=== PATIENT | male | born 1955 | race Caucasian/White ===

== ENCOUNTER 2018-11-29 18:08 | Emergency (ER) | payer MEDICAID ==
[~2018-11-29] VITALS: Ht 182.9 cm; Wt 88.7 kg
[2018-11-29 18:12] VITALS: BP 145/83
== END 2018-11-29 19:51 | disposition home or self-care (01) ==
LOC: ED 19:15
DX: G89.11 Acute pain due to trauma (principal); M25.512 Pain in left shoulder; W01.0XXA Fall on same level from slipping, tripping and stumbling without subsequent striking against object, initial encounter; Y93.89 Activity, other specified; Y92.009 Unspecified place in unspecified non-institutional (private) residence as the place of occurrence of the external cause; Y99.8 Other external cause status
CPT/HCPCS: 99283

== ENCOUNTER 2018-12-20 08:49 | Inpatient (IN) | payer MEDICAID ==
[~2018-12-20] VITALS: Ht 182.9 cm; Wt 79.0 kg
--- NOTE | 2018-12-20 09:09 | NUR ---
PT MOE TYRONE FROM [facility] WHERE HE FELL X 2 AND VOMITTED X 2 TODAY. PT WITH HX: TBI. PT PLACED ON BP, CARDIAC AND CONT. PULSE OXIMETER. PT A&OX4. TEMP 101.5. PT PLACED ON OXYGEN AT 3 LITERS NC. ASSESSMENT COMPLETED. EKG DONE AND PRESENTED TO
[2018-12-20] MEDS ORDERED: CEFTRIAXONE PMX 1GM/50ML 50 ML IVPB ONE (09:30)
[2018-12-20] MEDS ORDERED: SODIUM CHLORIDE 0.9% 1,000ML IVBOLUS ONE ×2 (09:30→11:00)
[2018-12-20] MEDS ORDERED: ACETAMINOPHEN 500 MG TABLET PO ONE (09:30)
[2018-12-20 09:56] LABS: MEAN CORPUSCULAR HEMOGLOBIN 33.1 pg (27.5-34.5); MEAN CORPUSCULAR HGB CONC 33.3 g/dL (33.2-36.2); MEAN CORPUSCULAR VOLUME 99.3 fL (81-97); MEAN PLATELET VOLUME 8.3 fL (7.4-10.4); PLATELET COUNT 131 x10^3/uL (130-400); RED BLOOD COUNT 5.61 x10^6/uL (4.38-5.82); RED CELL DISTRIBUTION WIDTH 14.6 % (9.4-14.8)
[2018-12-20] MEDS ORDERED: CEFTRIAXONE PMX 1GM/50ML 50 ML ONE (10:04)
[2018-12-20] MEDS ORDERED: ACETAMINOPHEN 500 MG TABLET ONE (10:06)
[2018-12-20 10:07] LABS: ALBUMIN 3.4 g/dL (3.4-5.0); ANION GAP 9 mmol/L (5-15); CALCIUM 8.8 mg/dL (8.5-10.1); CHLORIDE 106 mmol/L (98-107)
[2018-12-20 10:12] LABS: ALANINE AMINOTRANSFERASE 30 U/L (12-78); ALKALINE PHOSPHATASE 78 U/L (45-117); BILIRUBIN,TOTAL 1.3 mg/dL (0.2-1.0); CREATININE 1.33 mg/dL (0.7-1.3); TOTAL PROTEIN 6.1 g/dL (6.4-8.2)
[2018-12-20 10:33] LABS: MD YES
[2018-12-20 10:36] LABS: BAND#(MANUAL) 3.21 x10^3/uL; BANDS%(MANUAL) 27 % (0-7); LYMPH#(MANUAL) 0.12 x10^3/uL (1-3.4); LYMPHS% (MANUAL) 1 % (22-44); METAMYELOCYTES# (MANUAL) 0.12 x10^3/uL (0-0); METAMYELOCYTES% (MANUAL) 1 % (0-1); MONOS#(MANUAL) 0.48 x10^3/uL (0.3-2.7); MONOS% (MANUAL) 4 % (2-9); SEG#(MANUAL) 7.97 x10^3/uL (1.8-6.8); SEGS% (MANUAL) 67 % (42-75)
[2018-12-20 10:37] LABS: <PLATELET ESTIMATE> ADEQUATE; <PLT MORPHOLOGY> NORMAL PLT MORPH; <RBC MORPHOLOGY> NORMAL
--- NOTE | 2018-12-20 10:47 | NUR ---
BLOOD CULTURES DRAWN X 2. ANTIBIOTICS HUNG PER MD ORDER
[2018-12-20] MEDS ORDERED: AMLO10TA8 PO (11:34)
[2018-12-20] MEDS ORDERED: LISI-170 PO (11:34)
[2018-12-20] MEDS ORDERED: TAMS-11 PO (11:34)
[2018-12-20] MEDS ORDERED: METF500T17 PO (11:35)
[2018-12-20] MEDS ORDERED: ASPI-496 PO (11:35)
[2018-12-20] MEDS ORDERED: DIVA125C2 PO ×2 (11:36→17:54)
[2018-12-20] MEDS ORDERED: OLAN10TA9 PO (11:37)
[2018-12-20] MEDS ORDERED: BENZ0.5T35 PO ×2 (11:39→18:39)
--- NOTE | 2018-12-20 11:39 | NUR ---
pt unable to urinate at this time. pt aware of urine sample needed.
--- NOTE | 2018-12-20 11:48 | NUR ---
PT REFUSING CATH FOR URINE SAMPLE
--- NOTE | 2018-12-20 11:54 | NUR ---
PT VOMITTED BROWNISH BRUGUNDY 500MLS EMESIS.
[2018-12-20] MEDS ORDERED: ONDANSETRON 2MG/ML, 2ML IVPush ONE (12:00)
[2018-12-20] MEDS ORDERED: ONDANSETRON 2MG/ML, 2ML ONE (12:13)
--- NOTE | 2018-12-20 12:18 | NUR ---
lab in for type and screen. zofran given.
--- NOTE | 2018-12-20 12:40 | NUR ---
DINERO INSERTED: PER DR. HARPREET HOWARD INSERT DINERO
--- NOTE | 2018-12-20 13:00 | NUR ---
CAREGIVER GRACE [phone] FROM [facility]
--- NOTE | 2018-12-20 13:10 | NUR ---
700 MLS IN DINERO BAG.
[2018-12-20 13:16] LABS: MICROSCOPIC INDICATED
[2018-12-20 13:25] LABS: CULTURE INDICATED? NO
[2018-12-20] MEDS ORDERED: ACETAMINOPHEN 325 MG TABLET PO PRN (13:30)
[2018-12-20] MEDS ORDERED: ONDANSETRON 2MG/ML, 2ML IVPush PRN (13:30)
[2018-12-20] MEDS ORDERED: ONDANSETRON ODT 4 MG PO PRN (13:30)
--- NOTE | 2018-12-20 13:52 | NUR ---
REPORT GIVEN TO ANA TAYLOR. LAB INTO DRAW ABG.
--- NOTE | 2018-12-20 13:52 | NUR ---
LESLEY MONSON [phone]
[2018-12-20 14:02] LABS: % IRON SATURATION 12 % (20-55); IRON LEVEL 44 mcg/dL (65-175); TOTAL IRON BINDING CAPACITY 363 mcg/dL (250-450)
--- NOTE | 2018-12-20 14:24 | NUR ---
PT TRANSPORTED TO FLOOR. PT LEFT WITH ALL PERSONAL BELONGINGS.
[2018-12-20 14:30] VITALS: BP 127/70
[2018-12-20 15:02] VITALS: BP 127/70
[2018-12-20] MEDS: LACTOBACILLUS CHEW TABLET PO SCH ×2 (16:35→21:02)
[2018-12-20] MEDS: NICOTINE 7 MG/24 HR PATCH.TD24 TD SCH (16:35)
[2018-12-20] MEDS: SODIUM CHLORIDE 0.9% 1,000 ML IV SCH (16:35)
[2018-12-20] MEDS ORDERED: ATOR40TA78 PO (17:58)
[2018-12-20] MEDS ORDERED: NAPR-856 PO (17:58)
[2018-12-20] MEDS ORDERED: CALCIUM CARBONATE 500 MG TAB.CHEW PO PRN (21:00)
[2018-12-20] MEDS: DIVALPROEX 125 MG CAP.SPRINK PO SCH (21:02)
[2018-12-20] MEDS: OLANZAPINE 10 MG TABLET PO SCH (21:02)
[2018-12-20 21:50] VITALS: BP 125/78
[2018-12-21 03:35] VITALS: BP 123/71
[2018-12-21] MEDS: SODIUM CHLORIDE 0.9% 1,000 ML IV SCH ×2 (05:01→22:45)
[2018-12-21 05:22] LABS: BASOPHILS # (AUTO) 0.01 x10^3/uL (0-0.1); BASOPHILS % (AUTO) 0 % (0-1); EOSINOPHILS # (AUTO) 0.07 x10^3/uL (0-0.4); EOSINOPHILS % (AUTO) 1 % (1-7); LYMPHOCYTES # (AUTO) 0.55 x10^3/uL (1-3.4); LYMPHOCYTES % (AUTO) 8 % (22-44); MD NO; MEAN CORPUSCULAR HEMOGLOBIN 33.4 pg (27.5-34.5); MEAN CORPUSCULAR HGB CONC 33.8 g/dL (33.2-36.2); MEAN CORPUSCULAR VOLUME 98.9 fL (81-97); MEAN PLATELET VOLUME 8.3 fL (7.4-10.4); MONOCYTES # (AUTO) 0.65 x10^3/uL (0.2-0.8); MONOCYTES % (AUTO) 10 % (2-9); NEUTROPHILS % (AUTO) 81 % (42-75); PLATELET COUNT 116 x10^3/uL (130-400); RED BLOOD COUNT 4.77 x10^6/uL (4.38-5.82); RED CELL DISTRIBUTION WIDTH 14.9 % (9.4-14.8)
[2018-12-21 05:29] LABS: ANION GAP 2 mmol/L (5-15); CALCIUM 7.9 mg/dL (8.5-10.1); CHLORIDE 110 mmol/L (98-107); CREATININE 0.92 mg/dL (0.7-1.3)
[2018-12-21 07:13] VITALS: BP 135/86
[2018-12-21] MEDS ORDERED: PANTOPRAZOLE 40 MG IV IVPush SCH (07:30)
[2018-12-21] MEDS: TAMSULOSIN 0.4 MG CAP.ER.24H PO SCH (09:43)
[2018-12-21] MEDS: DIVALPROEX 125 MG CAP.SPRINK PO SCH ×2 (09:43→23:25)
[2018-12-21] MEDS: LACTOBACILLUS CHEW TABLET PO SCH ×3 (09:44→23:25)
[2018-12-21] MEDS: ASPIRIN 81 MG TABLET EC PO SCH (09:44)
[2018-12-21] MEDS: AMLODIPINE 10 MG TAB PO SCH (09:44)
[2018-12-21] MEDS ORDERED: FERROUS SULFATE 325 MG TABLET PO SCH (10:30)
[2018-12-21] MEDS: NICOTINE 7 MG/24 HR PATCH.TD24 TD SCH (11:45)
[2018-12-21 18:30] VITALS: BP 158/80
[2018-12-21] MEDS: OLANZAPINE 10 MG TABLET PO SCH (23:25)
[2018-12-22 01:35] VITALS: BP 166/88
[2018-12-22 05:31] LABS: BASOPHILS # (AUTO) 0.02 x10^3/uL (0-0.1); BASOPHILS % (AUTO) 0 % (0-1); EOSINOPHILS # (AUTO) 0.09 x10^3/uL (0-0.4); EOSINOPHILS % (AUTO) 1 % (1-7); LYMPHOCYTES # (AUTO) 0.97 x10^3/uL (1-3.4); LYMPHOCYTES % (AUTO) 13 % (22-44); MD NO; MEAN CORPUSCULAR HEMOGLOBIN 33.1 pg (27.5-34.5); MEAN CORPUSCULAR HGB CONC 33.4 g/dL (33.2-36.2); MEAN CORPUSCULAR VOLUME 99.3 fL (81-97); MEAN PLATELET VOLUME 8.3 fL (7.4-10.4); MONOCYTES % (AUTO) 8 % (2-9); NEUTROPHILS # (AUTO) 5.68 x10^3/uL (1.8-6.8); NEUTROPHILS % (AUTO) 77 % (42-75); PLATELET COUNT 111 x10^3/uL (130-400); RED BLOOD COUNT 4.94 x10^6/uL (4.38-5.82); RED CELL DISTRIBUTION WIDTH 14.7 % (9.4-14.8)
[2018-12-22 05:37] LABS: ANION GAP 5 mmol/L (5-15); CHLORIDE 109 mmol/L (98-107)
[2018-12-22 05:38] LABS: CALCIUM 7.7 mg/dL (8.5-10.1); CREATININE 0.76 mg/dL (0.7-1.3)
[2018-12-22] MEDS ORDERED: OMEPRAZOLE 20 MG CAPSULE.DR PO SCH (06:00)
[2018-12-22 06:52] VITALS: BP 146/85
[2018-12-22] MEDS ORDERED: LISINOPRIL 5 MG TABLET PO SCH (09:00)
[2018-12-22] MEDS: LACTOBACILLUS CHEW TABLET PO SCH (09:22)
[2018-12-22] MEDS: AMLODIPINE 10 MG TAB PO SCH (09:22)
[2018-12-22] MEDS: TAMSULOSIN 0.4 MG CAP.ER.24H PO SCH (09:22)
[2018-12-22] MEDS: ASPIRIN 81 MG TABLET EC PO SCH (09:22)
[2018-12-22] MEDS: DIVALPROEX 125 MG CAP.SPRINK PO SCH (09:22)
[2018-12-22] MEDS ORDERED: OMEP-110 PO (10:28)
[2018-12-22] MEDS ORDERED: ACID1TAB7 PO (10:28)
[2018-12-22] MEDS ORDERED: FERR-51 PO (10:28)
[2018-12-22] MEDS ORDERED: LISI5TAB7 PO (10:28)
[2018-12-22] MEDS ORDERED: CALC200T24 PO (10:28)
[2018-12-22 14:26] VITALS: BP 131/69
== END 2018-12-22 14:48 | disposition home or self-care (01) | DRG 872 ==
LOC: ED 11:20 → EDIP 11:51 → 4NOR 14:21
PROVIDERS: ADMIT Hospitalist; ATTEND Hospitalist
DX: A41.9 Sepsis, unspecified organism (principal); N17.9 Acute kidney failure, unspecified; K92.0 Hematemesis; I50.9 Heart failure, unspecified; I11.0 Hypertensive heart disease with heart failure; F17.200 Nicotine dependence, unspecified, uncomplicated; M81.0 Age-related osteoporosis without current pathological fracture; D75.1 Secondary polycythemia; E61.1 Iron deficiency; D69.6 Thrombocytopenia, unspecified; Z87.820 Personal history of traumatic brain injury
CPT/HCPCS: 36415; 36600; 71045; 80048; 80053; 81001; 82803; 83540; 83550; 83605; 83735; 85025; 86850; 86900; 87040; 93005; G0378; J0696; J2405; C9113; J7030

== ENCOUNTER 2019-01-02 13:15 | Emergency (ER) | payer MEDICAID ==
[~2019-01-02] VITALS: Ht 182.9 cm; Wt 87.0 kg
[~2019-01-02 13:15] MED LIST: ACID1TAB7 PO; AMLO10TA8 PO; ASPI-496 PO; ATOR40TA78 PO; BENZ0.5T35 PO; CALC200T24 PO; DIVA125C2 PO; FERR-51 PO; LISI-170 PO; LISI5TAB7 PO; METF500T17 PO; NAPR-856 PO; OLAN10TA9 PO; OMEP-110 PO; TAMS-11 PO
--- NOTE | 2019-01-02 14:30 | NUR ---
RESING WITH EYES CLOSED
--- NOTE | 2019-01-02 15:11 | NUR ---
AMBULATED WITHOUT ASSISTANCE TO BATHROOM
--- NOTE | 2019-01-02 15:15 | NUR ---
PT GIVEN DISCHARGE INSTRUCTIONS. PT STATES HE WANTS TO BE ADMITTED AND SPEND THE NIGHT HERE. EXPLAINED CT NORMAL AND NO REASON FOR ADMISSION. PT WANTING DINNER AND TO STAY.
--- NOTE | 2019-01-02 15:17 | NUR ---
PT AMBULATED TO BATHROOM WITH RN. WHILE IN BATHROOM PT STATES HE FELL, ON ALL FOURS. PT STATES HIS KNEES HURT. PT PLACED IN WHEELCHAIR AND BACK TO ROOM Addendum: 01/02/19 at 1648 by UMANG LATE ENTRY FOR 151
[2019-01-02] MEDS ORDERED: IBUPROFEN 600 MG TABLET PO ONE (16:00)
[2019-01-02] MEDS ORDERED: IBUPROFEN 600 MG TABLET ONE (16:07)
[2019-01-02] MEDS ORDERED: IBUPROFEN 200 MG TABLET ONE (16:10)
--- NOTE | 2019-01-02 16:22 | NUR ---
AFTER MD BENITA MEDICATED FOR BILATERAL KNEE PAIN. NO ABRASIONS NOTED AND FULL RANGE OF MOTION. PT TO DISCHARGE WINDOW BY WHEELCHAIR
[2019-01-02 16:37] VITALS: BP 143/74
== END 2019-01-02 15:13 ==
LOC: ED 14:05
DX: S00.93XA Contusion of unspecified part of head, initial encounter (principal); E11.9 Type 2 diabetes mellitus without complications; I10 Essential (primary) hypertension; W01.0XXA Fall on same level from slipping, tripping and stumbling without subsequent striking against object, initial encounter; Y93.89 Activity, other specified; Y92.009 Unspecified place in unspecified non-institutional (private) residence as the place of occurrence of the external cause; Y99.8 Other external cause status
CPT/HCPCS: 70450; 99284

== ENCOUNTER 2020-05-31 20:53 | Emergency (ER) | payer MEDICAID ==
[~2020-05-31] VITALS: Ht 180.3 cm; Wt 91.0 kg
--- NOTE | 2020-05-31 23:13 | NUR ---
[facility] [employer]: PT. TO ROOM FROM LOBBY AT THIS TIME.
--- NOTE | 2020-05-31 23:26 | NUR ---
PT TO ED WITH C/O OF LEFT KNEE PAIN. TENDER WITH PALPATION, FULL ROM, NEURO INTACT. PT DENIES ANY OTHER C/O AT THIS TIME. MONITORING APPLIED, CALL LIGHT WITHIN REACH, ALL SAFETY MEASURES IN PLACE.
[2020-05-31 23:31] VITALS: BP 124/65
[2020-05-31] MEDS ORDERED: IBUPROFEN 800 MG TABLET ONE (23:44)
[2020-06-01] MEDS ORDERED: IBUPROFEN 800 MG TABLET PO ONE
== END 2020-06-01 00:06 | disposition home or self-care (01) ==
LOC: ED 22:00
DX: S80.02XA Contusion of left knee, initial encounter (principal); I10 Essential (primary) hypertension; E11.9 Type 2 diabetes mellitus without complications; Z87.891 Personal history of nicotine dependence; W01.0XXA Fall on same level from slipping, tripping and stumbling without subsequent striking against object, initial encounter; Y93.89 Activity, other specified; Y92.009 Unspecified place in unspecified non-institutional (private) residence as the place of occurrence of the external cause; Y99.8 Other external cause status
CPT/HCPCS: 99283

== ENCOUNTER 2021-06-12 17:53 | Inpatient (IN) | payer MEDICAID ==
[~2021-06-12] VITALS: Ht 175.3 cm; Wt 79.0 kg
[~2021-06-12 17:53] MED LIST changes: +AMLO-211 PO; -AMLO10TA8 PO; +OLAN10TA69 PO; -OLAN10TA9 PO
--- NOTE | 2021-06-12 18:52 | NUR ---
Report from Tru TAYLOR
[2021-06-12] MEDS ORDERED: ONDANSETRON 2MG/ML, 2ML IVPush ONE (20:00)
[2021-06-12] MEDS ORDERED: MORPHINE SULFATE 4 MG/ML, 1ML IVPush PRN (20:00)
--- NOTE | 2021-06-12 20:58 | NUR ---
Report to Tari TAYLOR
[2021-06-12] MEDS ORDERED: ONDANSETRON 2MG/ML, 2ML ONE (20:59)
[2021-06-12] MEDS ORDERED: MORPHINE SULFATE 4 MG/ML, 1ML ONE (20:59)
[2021-06-12] MEDS ORDERED: CALCIUM CARBONATE 500 MG TAB.CHEW PO PRN (21:00)
[2021-06-12] MEDS ORDERED: LABETALOL 5MG/ML, 20ML IVPush PRN (21:00)
[2021-06-12] MEDS ORDERED: morphine SULFATE 10 MG/ML, 1ML IVPush PRN (21:00)
[2021-06-12] MEDS ORDERED: ONDANSETRON 2MG/ML, 2ML IVPush PRN (21:00)
[2021-06-12] MEDS ORDERED: LISI40TA9 PO (21:34)
[2021-06-12] MEDS ORDERED: OMEP20CA20 PO (21:34)
[2021-06-12] MEDS ORDERED: TAMS-11 PO (21:34)
[2021-06-12] MEDS ORDERED: AMLO-210 PO (21:34)
[2021-06-12] MEDS ORDERED: DIVA125C3 PO (21:34)
[2021-06-12] MEDS ORDERED: VITA1TAB3 PO (21:34)
[2021-06-12] MEDS ORDERED: ASPI-1027 PO (21:34)
[2021-06-12] MEDS ORDERED: DIVALPROEX 125 MG CAP.SPRINK PO ONE (21:45)
[2021-06-12] MEDS: FERROUS SULFATE 325 MG TABLET PO SCH (22:34)
[2021-06-12] MEDS: BENZTROPINE 1 MG TABLET PO SCH (22:34)
[2021-06-12] MEDS: metFORMIN 500 MG TABLET PO SCH (22:34)
[2021-06-12] MEDS: ATORVASTATIN 40 MG TABLET PO SCH (22:34)
[2021-06-12] MEDS: OLANZAPINE 10 MG TABLET PO SCH (22:37)
[2021-06-12 22:47] VITALS: BP 138/82
[2021-06-12 23:24] LABS: BASOPHILS % (AUTO) 0 % (0-1); EOSINOPHILS % (AUTO) 0 % (1-7); LYMPHOCYTES % (AUTO) 6 % (22-44); MEAN CORPUSCULAR HEMOGLOBIN 33.8 pg (27.5-34.5); MEAN CORPUSCULAR HGB CONC 33.9 g/dL (33.2-36.2); MEAN PLATELET VOLUME 9.2 fL (7.4-10.4); MONOCYTES % (AUTO) 8 % (2-9); NEUTROPHILS % (AUTO) 86 % (42-75); PLATELET COUNT 132 x10^3/uL (130-400); RED BLOOD COUNT 5.19 x10^6/uL (4.38-5.82); RED CELL DISTRIBUTION WIDTH 14.7 % (9.4-14.8)
[2021-06-12 23:40] LABS: ANION GAP 7 mmol/L (5-15); CALCIUM 8.1 mg/dL (8.5-10.1); CHLORIDE 105 mmol/L (98-107); CREATININE 0.75 mg/dL (0.7-1.3)
[2021-06-13 01:20] VITALS: BP 119/80
[2021-06-13] MEDS: OMEPRAZOLE 20 MG CAPSULE.DR PO SCH (01:30)
[2021-06-13] MEDS ORDERED: CHLORHEXIDINE 15 ML UDC ONE (05:37)
[2021-06-13] MEDS ORDERED: CHLORHEXIDINE 15 ML UDC PO ONE (06:00)
[2021-06-13] MEDS ORDERED: FENTANYL PF 100 MCG/2ML ONE (06:27)
[2021-06-13] MEDS ORDERED: EPINEPHRINE 1 MG/ML, 1ML ONE (06:38)
[2021-06-13] MEDS ORDERED: BUPIVACAINE/PF 0.5% ONE (06:38)
[2021-06-13 06:55] LABS: ALBUMIN 3.5 g/dL (3.4-5.0); CALCIUM 8.8 mg/dL (8.5-10.1)
[2021-06-13 06:58] LABS: ALANINE AMINOTRANSFERASE 28 U/L (12-78); ALKALINE PHOSPHATASE 86 U/L (45-117); BILIRUBIN,TOTAL 1.4 mg/dL (0.2-1.0); TOTAL PROTEIN 6.5 g/dL (6.4-8.2)
[2021-06-13 07:04] LABS: ANION GAP 8 mmol/L (5-15); CHLORIDE 104 mmol/L (98-107)
[2021-06-13] MEDS ORDERED: TRANEXAMIC ACID 100 MG/ML, 10ML ONE (07:12)
[2021-06-13] MEDS ORDERED: HYDROmorphone 1 MG/ML, 1ML INJ ONE (07:23)
[2021-06-13] MEDS ORDERED: MEPERIDINE/PF 25MG/0.5ML IVPush PRN (07:30)
[2021-06-13] MEDS ORDERED: FENTANYL PF 100 MCG/2ML IV PRN (07:30)
[2021-06-13] MEDS ORDERED: MIDAZOLAM 1 MG/ML, 2ML IV PRN (07:30)
[2021-06-13] MEDS ORDERED: OXYcodone 5 MG/5 ML ORAL.SOL UDC PO PRN (07:30)
[2021-06-13] MEDS ORDERED: ALBUTEROL SULFATE 2.5 MG/3 ML NPPB PRN (07:30)
[2021-06-13] MEDS ORDERED: ACETAMINOPHEN 325 MG TABLET PO PRN (07:30)
[2021-06-13] MEDS ORDERED: hydrALAzine 20 MG/ML, 1ML IV PRN (07:30)
[2021-06-13] MEDS ORDERED: HYDROmorphone 1 MG/ML, 1ML INJ IVPush PRN (07:30)
[2021-06-13] MEDS ORDERED: PROMETHAZINE 25 MG/ML, 1ML IVPush PRN (07:30)
[2021-06-13] MEDS ORDERED: DEXAMETHASONE 4 MG/ML, 1ML ONE (07:59)
[2021-06-13] MEDS ORDERED: CEFAZOLIN 1,000 MG ONE (07:59)
[2021-06-13] MEDS ORDERED: ONDANSETRON 2MG/ML, 2ML ONE (07:59)
[2021-06-13] MEDS ORDERED: PROPOFOL 10 MG/ML, 20ML ONE (07:59)
[2021-06-13] MEDS ORDERED: SUCCINYLCHOLINE 20 MG/ML, 10ML ONE (08:36)
[2021-06-13] MEDS: BENZTROPINE 1 MG TABLET PO SCH ×2 (10:56→20:26)
[2021-06-13] MEDS: AMLODIPINE 10 MG TAB PO SCH (10:56)
[2021-06-13] MEDS: TAMSULOSIN 0.4 MG CAP.ER.24H PO SCH (10:56)
[2021-06-13] MEDS: DIVALPROEX 125 MG CAP.SPRINK PO SCH (10:57)
[2021-06-13] MEDS: LISINOPRIL 5 MG TABLET PO SCH (10:57)
[2021-06-13] MEDS: SENNA/DOCUSATE TABLET PO SCH (10:57)
[2021-06-13] MEDS: metFORMIN 500 MG TABLET PO SCH ×2 (10:57→17:40)
[2021-06-13 12:15] VITALS: BP 94/60
[2021-06-13] MEDS: CEFAZOLIN PMX 1GM/50ML 50 ML IVPB SCH ×2 (18:15→23:48)
[2021-06-13 20:15] VITALS: BP 110/68
[2021-06-13] MEDS: OLANZAPINE 10 MG TABLET PO SCH (20:26)
[2021-06-13] MEDS: ATORVASTATIN 40 MG TABLET PO SCH (20:26)
[2021-06-13] MEDS: ACETAMINOPHEN 325 MG TABLET PO PRN (20:26)
[2021-06-14 00:15] VITALS: BP 118/74
[2021-06-14 04:27] VITALS: BP 103/68
[2021-06-14] MEDS: OMEPRAZOLE 20 MG CAPSULE.DR PO SCH (06:06)
[2021-06-14] MEDS: ENOXAPARIN 40 MG/0.4 ML SQ SCH (06:08)
[2021-06-14 08:45] VITALS: BP 104/66
[2021-06-14] MEDS: DIVALPROEX 125 MG CAP.SPRINK PO SCH (08:50)
[2021-06-14] MEDS: SENNA/DOCUSATE TABLET PO SCH (08:50)
[2021-06-14] MEDS: TAMSULOSIN 0.4 MG CAP.ER.24H PO SCH (08:50)
[2021-06-14] MEDS: metFORMIN 500 MG TABLET PO SCH ×2 (08:50→18:19)
[2021-06-14] MEDS: AMLODIPINE 10 MG TAB PO SCH (08:51)
[2021-06-14] MEDS: BENZTROPINE 1 MG TABLET PO SCH ×2 (08:51→22:04)
[2021-06-14] MEDS: LISINOPRIL 5 MG TABLET PO SCH (08:51)
[2021-06-14 13:04] VITALS: BP 107/67
[2021-06-14] MEDS ORDERED: OXYcodone IR 5MG TABLET PO PRN (17:30)
[2021-06-14 20:32] VITALS: BP 103/67
[2021-06-14] MEDS: ATORVASTATIN 40 MG TABLET PO SCH (22:04)
[2021-06-14] MEDS: OLANZAPINE 10 MG TABLET PO SCH (22:04)
[2021-06-14] MEDS: OXYcodone IR 5MG TABLET PO PRN (22:06)
[2021-06-14] MEDS: FERROUS SULFATE 325 MG TABLET PO SCH (22:09)
[2021-06-15 01:54] VITALS: BP 110/73
[2021-06-15] MEDS: ENOXAPARIN 40 MG/0.4 ML SQ SCH (05:28)
[2021-06-15] MEDS: OMEPRAZOLE 20 MG CAPSULE.DR PO SCH (05:28)
[2021-06-15 05:42] LABS: BASOPHILS % (AUTO) 0 % (0-1); EOSINOPHILS % (AUTO) 1 % (1-7); LYMPHOCYTES % (AUTO) 8 % (22-44); MEAN CORPUSCULAR HEMOGLOBIN 33.3 pg (27.5-34.5); MEAN CORPUSCULAR HGB CONC 33.2 g/dL (33.2-36.2); MEAN PLATELET VOLUME 8.9 fL (7.4-10.4); MONOCYTES % (AUTO) 11 % (2-9); NEUTROPHILS % (AUTO) 79 % (42-75); PLATELET COUNT 116 x10^3/uL (130-400); RED BLOOD COUNT 4.07 x10^6/uL (4.38-5.82); RED CELL DISTRIBUTION WIDTH 15.4 % (9.4-14.8)
[2021-06-15 05:53] LABS: CHLORIDE 104 mmol/L (98-107)
[2021-06-15 05:58] LABS: ANION GAP 5 mmol/L (5-15); CALCIUM 8.4 mg/dL (8.5-10.1); CREATININE 0.93 mg/dL (0.7-1.3)
[2021-06-15 08:37] VITALS: BP 116/62
[2021-06-15] MEDS: BENZTROPINE 1 MG TABLET PO SCH ×2 (10:09→20:50)
[2021-06-15] MEDS: metFORMIN 500 MG TABLET PO SCH ×2 (10:10→17:57)
[2021-06-15] MEDS: TAMSULOSIN 0.4 MG CAP.ER.24H PO SCH (10:10)
[2021-06-15] MEDS: AMLODIPINE 10 MG TAB PO SCH (10:10)
[2021-06-15] MEDS: DIVALPROEX 125 MG CAP.SPRINK PO SCH (10:10)
[2021-06-15] MEDS: LISINOPRIL 5 MG TABLET PO SCH (10:10)
[2021-06-15] MEDS: SENNA/DOCUSATE TABLET PO SCH (10:10)
[2021-06-15] MEDS: OXYcodone IR 5MG TABLET PO PRN (10:23)
[2021-06-15] MEDS: POLYETHYLENE GLYCOL 17 GM PACKET PO SCH (11:12)
[2021-06-15 16:56] VITALS: BP 102/61
[2021-06-15 19:23] VITALS: BP 99/61
[2021-06-15] MEDS: OLANZAPINE 10 MG TABLET PO SCH (20:49)
[2021-06-15] MEDS: ATORVASTATIN 40 MG TABLET PO SCH (20:49)
[2021-06-16 02:30] VITALS: BP 112/71
[2021-06-16 06:04] LABS: BASOPHILS % (AUTO) 0 % (0-1); EOSINOPHILS % (AUTO) 2 % (1-7); LYMPHOCYTES % (AUTO) 9 % (22-44); MEAN CORPUSCULAR HEMOGLOBIN 33.6 pg (27.5-34.5); MEAN CORPUSCULAR HGB CONC 33.8 g/dL (33.2-36.2); MONOCYTES % (AUTO) 10 % (2-9); NEUTROPHILS % (AUTO) 79 % (42-75); PLATELET COUNT 124 x10^3/uL (130-400); RED BLOOD COUNT 3.93 x10^6/uL (4.38-5.82); RED CELL DISTRIBUTION WIDTH 14.9 % (9.4-14.8)
[2021-06-16 06:12] LABS: CALCIUM 8.5 mg/dL (8.5-10.1); CREATININE 0.98 mg/dL (0.7-1.3)
[2021-06-16] MEDS: ENOXAPARIN 40 MG/0.4 ML SQ SCH (06:17)
[2021-06-16] MEDS: OMEPRAZOLE 20 MG CAPSULE.DR PO SCH (06:17)
[2021-06-16 07:27] LABS: ANION GAP 7 mmol/L (5-15); CHLORIDE 103 mmol/L (98-107)
[2021-06-16 08:27] VITALS: BP 113/69
[2021-06-16] MEDS: DIVALPROEX 125 MG CAP.SPRINK PO SCH (08:35)
[2021-06-16] MEDS: TAMSULOSIN 0.4 MG CAP.ER.24H PO SCH (08:35)
[2021-06-16] MEDS: AMLODIPINE 10 MG TAB PO SCH (08:36)
[2021-06-16] MEDS: LISINOPRIL 5 MG TABLET PO SCH (08:36)
[2021-06-16] MEDS: BENZTROPINE 1 MG TABLET PO SCH ×2 (08:36→21:05)
[2021-06-16] MEDS: SENNA/DOCUSATE TABLET PO SCH (08:36)
[2021-06-16] MEDS: POLYETHYLENE GLYCOL 17 GM PACKET PO SCH (08:36)
[2021-06-16] MEDS: metFORMIN 500 MG TABLET PO SCH ×2 (08:36→17:09)
[2021-06-16] MEDS: OXYcodone IR 5MG TABLET PO PRN (12:46)
[2021-06-16 14:37] VITALS: BP 116/60
[2021-06-16 20:42] VITALS: BP 117/77
[2021-06-16] MEDS: ATORVASTATIN 40 MG TABLET PO SCH (21:05)
[2021-06-16] MEDS: OLANZAPINE 10 MG TABLET PO SCH (21:05)
[2021-06-16] MEDS: FERROUS SULFATE 325 MG TABLET PO SCH (21:05)
[2021-06-16] MEDS: BISACODYL 10 MG SUPP PR PRN (21:05)
[2021-06-17 00:15] VITALS: BP 125/78
[2021-06-17] MEDS: OMEPRAZOLE 20 MG CAPSULE.DR PO SCH (06:35)
[2021-06-17] MEDS: ENOXAPARIN 40 MG/0.4 ML SQ SCH (06:36)
[2021-06-17 07:28] VITALS: BP 105/63
[2021-06-17] MEDS: metFORMIN 500 MG TABLET PO SCH ×2 (08:03→17:13)
[2021-06-17] MEDS: BENZTROPINE 1 MG TABLET PO SCH ×2 (09:28→19:53)
[2021-06-17] MEDS: DIVALPROEX 125 MG CAP.SPRINK PO SCH (09:29)
[2021-06-17] MEDS: TAMSULOSIN 0.4 MG CAP.ER.24H PO SCH (09:29)
[2021-06-17] MEDS: POLYETHYLENE GLYCOL 17 GM PACKET PO SCH (09:29)
[2021-06-17] MEDS: AMLODIPINE 10 MG TAB PO SCH (09:29)
[2021-06-17] MEDS: LISINOPRIL 5 MG TABLET PO SCH (09:29)
[2021-06-17] MEDS: SENNA/DOCUSATE TABLET PO SCH (09:29)
[2021-06-17 13:36] VITALS: BP 135/84
[2021-06-17 13:44] VITALS: BP 98/57
[2021-06-17 19:38] VITALS: BP 105/64
[2021-06-17] MEDS: ATORVASTATIN 40 MG TABLET PO SCH (19:53)
[2021-06-17] MEDS: OLANZAPINE 10 MG TABLET PO SCH (19:53)
[2021-06-18 00:59] VITALS: BP 121/73
[2021-06-18] MEDS: OMEPRAZOLE 20 MG CAPSULE.DR PO SCH (06:19)
[2021-06-18] MEDS: ENOXAPARIN 40 MG/0.4 ML SQ SCH (06:19)
[2021-06-18 07:37] VITALS: BP 113/69
[2021-06-18] MEDS: metFORMIN 500 MG TABLET PO SCH ×2 (07:55→17:26)
[2021-06-18] MEDS: BENZTROPINE 1 MG TABLET PO SCH ×2 (08:55→20:19)
[2021-06-18] MEDS: POLYETHYLENE GLYCOL 17 GM PACKET PO SCH (08:55)
[2021-06-18] MEDS: TAMSULOSIN 0.4 MG CAP.ER.24H PO SCH (08:55)
[2021-06-18] MEDS: DIVALPROEX 125 MG CAP.SPRINK PO SCH (08:55)
[2021-06-18] MEDS: SENNA/DOCUSATE TABLET PO SCH (08:56)
[2021-06-18] MEDS: LISINOPRIL 5 MG TABLET PO SCH (08:56)
[2021-06-18] MEDS: AMLODIPINE 10 MG TAB PO SCH (08:56)
[2021-06-18 14:13] VITALS: BP 126/71
[2021-06-18 19:00] VITALS: BP 103/62
[2021-06-18] MEDS: ATORVASTATIN 40 MG TABLET PO SCH (20:18)
[2021-06-18] MEDS: FERROUS SULFATE 325 MG TABLET PO SCH (20:19)
[2021-06-18] MEDS: OLANZAPINE 10 MG TABLET PO SCH (20:19)
[2021-06-19 01:00] VITALS: BP 124/74
[2021-06-19] MEDS: OMEPRAZOLE 20 MG CAPSULE.DR PO SCH (06:02)
[2021-06-19] MEDS: ENOXAPARIN 40 MG/0.4 ML SQ SCH (06:02)
[2021-06-19 06:53] VITALS: BP 132/65
[2021-06-19] MEDS: metFORMIN 500 MG TABLET PO SCH ×2 (08:06→17:07)
[2021-06-19] MEDS: TAMSULOSIN 0.4 MG CAP.ER.24H PO SCH (09:08)
[2021-06-19] MEDS: DIVALPROEX 125 MG CAP.SPRINK PO SCH (09:08)
[2021-06-19] MEDS: LISINOPRIL 5 MG TABLET PO SCH (09:08)
[2021-06-19] MEDS: BENZTROPINE 1 MG TABLET PO SCH ×2 (09:08→21:25)
[2021-06-19] MEDS: AMLODIPINE 10 MG TAB PO SCH (09:08)
[2021-06-19] MEDS: POLYETHYLENE GLYCOL 17 GM PACKET PO SCH (09:08)
[2021-06-19] MEDS: SENNA/DOCUSATE TABLET PO SCH (09:09)
[2021-06-19 13:35] VITALS: BP 134/76
[2021-06-19 18:27] VITALS: BP 140/69
[2021-06-19] MEDS: ATORVASTATIN 40 MG TABLET PO SCH (21:24)
[2021-06-19] MEDS: OLANZAPINE 10 MG TABLET PO SCH (21:24)
[2021-06-20 00:28] VITALS: BP 130/67
[2021-06-20] MEDS: OMEPRAZOLE 20 MG CAPSULE.DR PO SCH (06:00)
[2021-06-20 07:29] VITALS: BP 132/78
[2021-06-20] MEDS: TAMSULOSIN 0.4 MG CAP.ER.24H PO SCH (07:58)
[2021-06-20] MEDS: LISINOPRIL 5 MG TABLET PO SCH (07:58)
[2021-06-20] MEDS: DIVALPROEX 125 MG CAP.SPRINK PO SCH (07:58)
[2021-06-20] MEDS: SENNA/DOCUSATE TABLET PO SCH (07:59)
[2021-06-20] MEDS: ENOXAPARIN 40 MG/0.4 ML SQ SCH (07:59)
[2021-06-20] MEDS: metFORMIN 500 MG TABLET PO SCH ×2 (07:59→16:20)
[2021-06-20] MEDS: AMLODIPINE 10 MG TAB PO SCH (07:59)
[2021-06-20] MEDS: BENZTROPINE 1 MG TABLET PO SCH ×2 (07:59→19:56)
[2021-06-20] MEDS: POLYETHYLENE GLYCOL 17 GM PACKET PO SCH (07:59)
[2021-06-20] MEDS: BISACODYL 10 MG SUPP PR PRN (10:17)
[2021-06-20 13:48] VITALS: BP 105/67
[2021-06-20 19:18] VITALS: BP 139/78
[2021-06-20] MEDS: ATORVASTATIN 40 MG TABLET PO SCH (19:59)
[2021-06-20] MEDS: FERROUS SULFATE 325 MG TABLET PO SCH (19:59)
[2021-06-20] MEDS: OLANZAPINE 10 MG TABLET PO SCH (19:59)
[2021-06-21 02:35] VITALS: BP 134/76
[2021-06-21] MEDS: OMEPRAZOLE 20 MG CAPSULE.DR PO SCH (05:58)
[2021-06-21 07:15] VITALS: BP 136/76
[2021-06-21] MEDS: BENZTROPINE 1 MG TABLET PO SCH ×2 (07:51→22:20)
[2021-06-21] MEDS: AMLODIPINE 10 MG TAB PO SCH (07:51)
[2021-06-21] MEDS: TAMSULOSIN 0.4 MG CAP.ER.24H PO SCH (07:51)
[2021-06-21] MEDS: LISINOPRIL 5 MG TABLET PO SCH (07:52)
[2021-06-21] MEDS: metFORMIN 500 MG TABLET PO SCH ×2 (07:53→16:24)
[2021-06-21] MEDS: SENNA/DOCUSATE TABLET PO SCH (07:53)
[2021-06-21] MEDS: DIVALPROEX 125 MG CAP.SPRINK PO SCH (07:53)
[2021-06-21] MEDS: POLYETHYLENE GLYCOL 17 GM PACKET PO SCH (07:53)
[2021-06-21] MEDS: ENOXAPARIN 40 MG/0.4 ML SQ SCH (07:54)
[2021-06-21 13:40] VITALS: BP 117/64
[2021-06-21 19:20] VITALS: BP 113/68
[2021-06-21] MEDS: ATORVASTATIN 40 MG TABLET PO SCH (22:19)
[2021-06-21] MEDS: OLANZAPINE 10 MG TABLET PO SCH (22:20)
[2021-06-22 01:02] VITALS: BP 117/71
[2021-06-22] MEDS: OMEPRAZOLE 20 MG CAPSULE.DR PO SCH (05:54)
[2021-06-22 06:21] LABS: CREATININE 0.71 mg/dL (0.7-1.3)
[2021-06-22 06:58] VITALS: BP 134/74
[2021-06-22] MEDS: BENZTROPINE 1 MG TABLET PO SCH ×2 (09:01→20:02)
[2021-06-22] MEDS: TAMSULOSIN 0.4 MG CAP.ER.24H PO SCH (09:01)
[2021-06-22] MEDS: metFORMIN 500 MG TABLET PO SCH ×2 (09:01→16:11)
[2021-06-22] MEDS: AMLODIPINE 10 MG TAB PO SCH (09:01)
[2021-06-22] MEDS: SENNA/DOCUSATE TABLET PO SCH (09:01)
[2021-06-22] MEDS: DIVALPROEX 125 MG CAP.SPRINK PO SCH (09:01)
[2021-06-22] MEDS: LISINOPRIL 5 MG TABLET PO SCH (09:02)
[2021-06-22] MEDS: ENOXAPARIN 40 MG/0.4 ML SQ SCH (09:02)
[2021-06-22] MEDS: POLYETHYLENE GLYCOL 17 GM PACKET PO SCH (09:02)
[2021-06-22 13:25] VITALS: BP 112/69
[2021-06-22] MEDS: BISACODYL 10 MG SUPP PR PRN (16:12)
[2021-06-22] MEDS: ATORVASTATIN 40 MG TABLET PO SCH (20:02)
[2021-06-22] MEDS: OLANZAPINE 10 MG TABLET PO SCH (20:02)
[2021-06-22] MEDS: FERROUS SULFATE 325 MG TABLET PO SCH (20:02)
[2021-06-22 20:45] VITALS: BP 121/70
[2021-06-23 02:46] VITALS: BP 135/75
[2021-06-23] MEDS: OMEPRAZOLE 20 MG CAPSULE.DR PO SCH (06:13)
[2021-06-23 07:24] VITALS: BP 134/75
[2021-06-23] MEDS: metFORMIN 500 MG TABLET PO SCH ×2 (08:23→16:20)
[2021-06-23] MEDS: SENNA/DOCUSATE TABLET PO SCH (08:23)
[2021-06-23] MEDS: POLYETHYLENE GLYCOL 17 GM PACKET PO SCH (08:23)
[2021-06-23] MEDS: DIVALPROEX 125 MG CAP.SPRINK PO SCH (08:24)
[2021-06-23] MEDS: LISINOPRIL 5 MG TABLET PO SCH (08:24)
[2021-06-23] MEDS: TAMSULOSIN 0.4 MG CAP.ER.24H PO SCH (08:24)
[2021-06-23] MEDS: BENZTROPINE 1 MG TABLET PO SCH ×2 (08:24→20:53)
[2021-06-23] MEDS: AMLODIPINE 10 MG TAB PO SCH (08:25)
[2021-06-23] MEDS: ENOXAPARIN 40 MG/0.4 ML SQ SCH (08:25)
[2021-06-23 13:06] VITALS: BP 115/90
[2021-06-23 20:02] VITALS: BP 115/72
[2021-06-23] MEDS: ATORVASTATIN 40 MG TABLET PO SCH (20:53)
[2021-06-23] MEDS: OLANZAPINE 10 MG TABLET PO SCH (20:53)
[2021-06-24 00:17] VITALS: BP 148/77
[2021-06-24] MEDS: OMEPRAZOLE 20 MG CAPSULE.DR PO SCH (06:07)
[2021-06-24 07:29] VITALS: BP 131/74
[2021-06-24] MEDS: DIVALPROEX 125 MG CAP.SPRINK PO SCH (10:27)
[2021-06-24] MEDS: LISINOPRIL 5 MG TABLET PO SCH (10:28)
[2021-06-24] MEDS: SENNA/DOCUSATE TABLET PO SCH (10:28)
[2021-06-24] MEDS: metFORMIN 500 MG TABLET PO SCH ×2 (10:28→18:18)
[2021-06-24] MEDS: AMLODIPINE 10 MG TAB PO SCH (10:28)
[2021-06-24] MEDS: TAMSULOSIN 0.4 MG CAP.ER.24H PO SCH (10:28)
[2021-06-24] MEDS: BENZTROPINE 1 MG TABLET PO SCH ×2 (10:29→21:11)
[2021-06-24] MEDS: POLYETHYLENE GLYCOL 17 GM PACKET PO SCH (10:31)
[2021-06-24 13:44] VITALS: BP 132/78
[2021-06-24] MEDS: ENOXAPARIN 40 MG/0.4 ML SQ SCH (14:59)
[2021-06-24 19:03] VITALS: BP 120/74
[2021-06-24] MEDS: ATORVASTATIN 40 MG TABLET PO SCH (21:10)
[2021-06-24] MEDS: FERROUS SULFATE 325 MG TABLET PO SCH (21:11)
[2021-06-24] MEDS: OLANZAPINE 10 MG TABLET PO SCH (21:11)
[2021-06-24] MEDS: ACETAMINOPHEN 325 MG TABLET PO PRN (23:36)
[2021-06-25 01:04] VITALS: BP 125/71
[2021-06-25] MEDS: OMEPRAZOLE 20 MG CAPSULE.DR PO SCH (05:41)
[2021-06-25 06:13] LABS: CREATININE 0.67 mg/dL (0.7-1.3)
[2021-06-25 07:21] VITALS: BP 131/79
[2021-06-25] MEDS: AMLODIPINE 10 MG TAB PO SCH (10:44)
[2021-06-25] MEDS: DIVALPROEX 125 MG CAP.SPRINK PO SCH (10:45)
[2021-06-25] MEDS: SENNA/DOCUSATE TABLET PO SCH (10:45)
[2021-06-25] MEDS: BENZTROPINE 1 MG TABLET PO SCH ×2 (10:45→20:02)
[2021-06-25] MEDS: LISINOPRIL 5 MG TABLET PO SCH (10:46)
[2021-06-25] MEDS: metFORMIN 500 MG TABLET PO SCH ×2 (10:46→16:00)
[2021-06-25] MEDS: TAMSULOSIN 0.4 MG CAP.ER.24H PO SCH (10:46)
[2021-06-25] MEDS: ENOXAPARIN 40 MG/0.4 ML SQ SCH (10:47)
[2021-06-25] MEDS: POLYETHYLENE GLYCOL 17 GM PACKET PO SCH (10:54)
[2021-06-25 13:29] VITALS: BP 120/65
[2021-06-25 18:31] VITALS: BP 119/66
[2021-06-25] MEDS: ATORVASTATIN 40 MG TABLET PO SCH (20:02)
[2021-06-25] MEDS: OLANZAPINE 10 MG TABLET PO SCH (20:03)
[2021-06-26 01:28] VITALS: BP 130/74
[2021-06-26] MEDS: OMEPRAZOLE 20 MG CAPSULE.DR PO SCH (05:00)
[2021-06-26 06:59] VITALS: BP 134/73
[2021-06-26] MEDS: POLYETHYLENE GLYCOL 17 GM PACKET PO SCH (09:00)
[2021-06-26] MEDS: ENOXAPARIN 40 MG/0.4 ML SQ SCH (10:18)
[2021-06-26] MEDS: metFORMIN 500 MG TABLET PO SCH ×2 (10:18→17:33)
[2021-06-26] MEDS: SENNA/DOCUSATE TABLET PO SCH (10:18)
[2021-06-26] MEDS: AMLODIPINE 10 MG TAB PO SCH (10:18)
[2021-06-26] MEDS: LISINOPRIL 5 MG TABLET PO SCH (10:18)
[2021-06-26] MEDS: BENZTROPINE 1 MG TABLET PO SCH ×2 (10:18→20:00)
[2021-06-26] MEDS: TAMSULOSIN 0.4 MG CAP.ER.24H PO SCH (10:18)
[2021-06-26] MEDS: DIVALPROEX 125 MG CAP.SPRINK PO SCH (10:18)
[2021-06-26 15:30] VITALS: BP 122/69
[2021-06-26 19:55] VITALS: BP 130/69
[2021-06-26] MEDS: FERROUS SULFATE 325 MG TABLET PO SCH (20:00)
[2021-06-26] MEDS: ATORVASTATIN 40 MG TABLET PO SCH (20:00)
[2021-06-26] MEDS: OLANZAPINE 10 MG TABLET PO SCH (20:00)
[2021-06-27 00:04] VITALS: BP 128/81
[2021-06-27] MEDS: OMEPRAZOLE 20 MG CAPSULE.DR PO SCH (06:21)
[2021-06-27 07:15] VITALS: BP 132/79
[2021-06-27] MEDS: POLYETHYLENE GLYCOL 17 GM PACKET PO SCH (09:00)
[2021-06-27] MEDS: metFORMIN 500 MG TABLET PO SCH ×2 (10:57→16:28)
[2021-06-27] MEDS: AMLODIPINE 10 MG TAB PO SCH (10:58)
[2021-06-27] MEDS: BENZTROPINE 1 MG TABLET PO SCH ×2 (10:58→21:56)
[2021-06-27] MEDS: TAMSULOSIN 0.4 MG CAP.ER.24H PO SCH (10:58)
[2021-06-27] MEDS: ENOXAPARIN 40 MG/0.4 ML SQ SCH (10:58)
[2021-06-27] MEDS: DIVALPROEX 125 MG CAP.SPRINK PO SCH (10:58)
[2021-06-27] MEDS: SENNA/DOCUSATE TABLET PO SCH (10:58)
[2021-06-27] MEDS: LISINOPRIL 5 MG TABLET PO SCH (10:58)
[2021-06-27 14:11] VITALS: BP 129/75
[2021-06-27 19:20] VITALS: BP 135/81
[2021-06-27] MEDS: OLANZAPINE 10 MG TABLET PO SCH (21:55)
[2021-06-27] MEDS: ATORVASTATIN 40 MG TABLET PO SCH (21:55)
[2021-06-28 00:37] VITALS: BP 128/76
[2021-06-28 05:59] LABS: CREATININE 0.65 mg/dL (0.7-1.3)
[2021-06-28] MEDS: OMEPRAZOLE 20 MG CAPSULE.DR PO SCH (06:33)
[2021-06-28 07:30] VITALS: BP 128/72
[2021-06-28 08:39] VITALS: BP 100/68
[2021-06-28] MEDS: POLYETHYLENE GLYCOL 17 GM PACKET PO SCH (09:00)
[2021-06-28] MEDS: metFORMIN 500 MG TABLET PO SCH ×2 (11:09→17:54)
[2021-06-28] MEDS: AMLODIPINE 10 MG TAB PO SCH (11:09)
[2021-06-28] MEDS: DIVALPROEX 125 MG CAP.SPRINK PO SCH (11:09)
[2021-06-28] MEDS: LISINOPRIL 5 MG TABLET PO SCH (11:09)
[2021-06-28] MEDS: BENZTROPINE 1 MG TABLET PO SCH ×2 (11:09→23:09)
[2021-06-28] MEDS: TAMSULOSIN 0.4 MG CAP.ER.24H PO SCH (11:09)
[2021-06-28] MEDS: SENNA/DOCUSATE TABLET PO SCH (11:09)
[2021-06-28] MEDS: ENOXAPARIN 40 MG/0.4 ML SQ SCH (11:39)
[2021-06-28 15:15] VITALS: BP 130/79
[2021-06-28 20:21] VITALS: BP 135/80
[2021-06-28] MEDS: OLANZAPINE 10 MG TABLET PO SCH (23:09)
[2021-06-28] MEDS: FERROUS SULFATE 325 MG TABLET PO SCH (23:09)
[2021-06-28] MEDS: ATORVASTATIN 40 MG TABLET PO SCH (23:09)
[2021-06-29 01:46] VITALS: BP 123/76
[2021-06-29] MEDS: OMEPRAZOLE 20 MG CAPSULE.DR PO SCH (06:57)
[2021-06-29 07:05] VITALS: BP 135/79
[2021-06-29 07:32] LABS: BASOPHILS % (AUTO) 1 % (0-1); EOSINOPHILS % (AUTO) 4 % (1-7); LYMPHOCYTES % (AUTO) 19 % (22-44); MEAN CORPUSCULAR HGB CONC 33.6 g/dL (33.2-36.2); MEAN PLATELET VOLUME 7.4 fL (7.4-10.4); MONOCYTES % (AUTO) 7 % (2-9); NEUTROPHILS % (AUTO) 69 % (42-75); PLATELET COUNT 324 x10^3/uL (130-400); RED BLOOD COUNT 4.05 x10^6/uL (4.38-5.82); RED CELL DISTRIBUTION WIDTH 14.5 % (9.4-14.8)
[2021-06-29 07:35] LABS: ALBUMIN 2.7 g/dL (3.4-5.0); ANION GAP 6 mmol/L (5-15); CALCIUM 8.9 mg/dL (8.5-10.1); CHLORIDE 107 mmol/L (98-107)
[2021-06-29 07:38] LABS: ALANINE AMINOTRANSFERASE 38 U/L (12-78); ALKALINE PHOSPHATASE 151 U/L (45-117); BILIRUBIN,TOTAL 0.6 mg/dL (0.2-1.0); CREATININE 0.59 mg/dL (0.7-1.3); TOTAL PROTEIN 6.1 g/dL (6.4-8.2)
[2021-06-29] MEDS: SENNA/DOCUSATE TABLET PO SCH (09:00)
[2021-06-29] MEDS: POLYETHYLENE GLYCOL 17 GM PACKET PO SCH (09:00)
[2021-06-29] MEDS: BENZTROPINE 1 MG TABLET PO SCH ×2 (09:09→20:19)
[2021-06-29] MEDS: LISINOPRIL 5 MG TABLET PO SCH (09:09)
[2021-06-29] MEDS: AMLODIPINE 10 MG TAB PO SCH (09:09)
[2021-06-29] MEDS: TAMSULOSIN 0.4 MG CAP.ER.24H PO SCH (09:09)
[2021-06-29] MEDS: metFORMIN 500 MG TABLET PO SCH ×2 (09:09→16:11)
[2021-06-29] MEDS: DIVALPROEX 125 MG CAP.SPRINK PO SCH (09:09)
[2021-06-29] MEDS: ENOXAPARIN 40 MG/0.4 ML SQ SCH (09:09)
[2021-06-29 12:30] VITALS: BP 95/60
[2021-06-29] MEDS: ACETAMINOPHEN 325 MG TABLET PO PRN (16:11)
[2021-06-29 19:44] VITALS: BP 114/75
[2021-06-29] MEDS: ATORVASTATIN 40 MG TABLET PO SCH (20:19)
[2021-06-29] MEDS: OLANZAPINE 10 MG TABLET PO SCH (20:19)
[2021-06-30 01:50] VITALS: BP 119/72
[2021-06-30] MEDS: OMEPRAZOLE 20 MG CAPSULE.DR PO SCH (06:09)
[2021-06-30 06:24] VITALS: BP 128/77
[2021-06-30] MEDS: TAMSULOSIN 0.4 MG CAP.ER.24H PO SCH (10:48)
[2021-06-30] MEDS: AMLODIPINE 10 MG TAB PO SCH (10:48)
[2021-06-30] MEDS: DIVALPROEX 125 MG CAP.SPRINK PO SCH (10:48)
[2021-06-30] MEDS: metFORMIN 500 MG TABLET PO SCH ×2 (10:48→16:20)
[2021-06-30] MEDS: SENNA/DOCUSATE TABLET PO SCH (10:48)
[2021-06-30] MEDS: BENZTROPINE 1 MG TABLET PO SCH ×2 (10:49→21:36)
[2021-06-30] MEDS: POLYETHYLENE GLYCOL 17 GM PACKET PO SCH (10:49)
[2021-06-30] MEDS: LISINOPRIL 5 MG TABLET PO SCH (10:49)
[2021-06-30] MEDS: ENOXAPARIN 40 MG/0.4 ML SQ SCH (10:50)
[2021-06-30 14:18] VITALS: BP 112/73
[2021-06-30 19:34] VITALS: BP 126/72
[2021-06-30] MEDS: FERROUS SULFATE 325 MG TABLET PO SCH (21:35)
[2021-06-30] MEDS: ATORVASTATIN 40 MG TABLET PO SCH (21:35)
[2021-06-30] MEDS: ACETAMINOPHEN 325 MG TABLET PO PRN (21:35)
[2021-06-30] MEDS: OLANZAPINE 10 MG TABLET PO SCH (21:36)
[2021-07-01 01:08] VITALS: BP 134/75
[2021-07-01] MEDS: ACETAMINOPHEN 325 MG TABLET PO PRN (03:38)
[2021-07-01 06:10] LABS: BASOPHILS % (AUTO) 1 % (0-1); EOSINOPHILS % (AUTO) 4 % (1-7); LYMPHOCYTES % (AUTO) 18 % (22-44); MEAN CORPUSCULAR HEMOGLOBIN 32.9 pg (27.5-34.5); MEAN CORPUSCULAR HGB CONC 33.4 g/dL (33.2-36.2); MEAN PLATELET VOLUME 7.8 fL (7.4-10.4); MONOCYTES % (AUTO) 8 % (2-9); NEUTROPHILS % (AUTO) 69 % (42-75); PLATELET COUNT 322 x10^3/uL (130-400); RED BLOOD COUNT 3.98 x10^6/uL (4.38-5.82); RED CELL DISTRIBUTION WIDTH 14.3 % (9.4-14.8)
[2021-07-01] MEDS: OMEPRAZOLE 20 MG CAPSULE.DR PO SCH (06:18)
[2021-07-01 06:19] LABS: CREATININE 0.59 mg/dL (0.7-1.3)
[2021-07-01 07:25] VITALS: BP 131/75
[2021-07-01] MEDS: AMLODIPINE 10 MG TAB PO SCH (09:00)
[2021-07-01] MEDS: POLYETHYLENE GLYCOL 17 GM PACKET PO SCH (09:00)
[2021-07-01] MEDS ORDERED: TRAM50TA2 PO (09:36)
[2021-07-01] MEDS ORDERED: SENN-211 PO (09:36)
[2021-07-01] MEDS ORDERED: ENOX40SY4 SQ (09:36)
[2021-07-01] MEDS: LISINOPRIL 5 MG TABLET PO SCH (10:17)
[2021-07-01] MEDS: ENOXAPARIN 40 MG/0.4 ML SQ SCH (10:18)
[2021-07-01] MEDS: SENNA/DOCUSATE TABLET PO SCH (10:18)
[2021-07-01] MEDS: TAMSULOSIN 0.4 MG CAP.ER.24H PO SCH (10:18)
[2021-07-01] MEDS: metFORMIN 500 MG TABLET PO SCH (10:18)
[2021-07-01] MEDS: BENZTROPINE 1 MG TABLET PO SCH (10:18)
[2021-07-01] MEDS: DIVALPROEX 125 MG CAP.SPRINK PO SCH (10:19)
[2021-07-01 14:04] VITALS: BP 123/76
== END 2021-07-01 15:30 | DRG 323 ==
LOC: ED 21:07 → EDIP 21:11 → 4NE 21:24 → 4EST 06-18 13:40 → 4NE 06-18 13:40
PROVIDERS: ADMIT Family Medicine; ATTEND Family Medicine
PROC: 0SRS0J9 Replacement of Left Hip Joint, Femoral Surface with Synthetic Substitute, Cemented, Open Approach (ICD-10-PCS; principal; 2021-06-12)
DX: S72.142A Displaced intertrochanteric fracture of left femur, initial encounter for closed fracture (principal); D62 Acute posthemorrhagic anemia; S72.032A Displaced midcervical fracture of left femur, initial encounter for closed fracture; E87.1 Hypo-osmolality and hyponatremia; E11.9 Type 2 diabetes mellitus without complications; E78.5 Hyperlipidemia, unspecified; Z20.822 Contact with and (suspected) exposure to COVID-19; G40.909 Epilepsy, unspecified, not intractable, without status epilepticus; Y93.01 Activity, walking, marching and hiking; I10 Essential (primary) hypertension; K40.20 Bilateral inguinal hernia, without obstruction or gangrene, not specified as recurrent; W01.0XXA Fall on same level from slipping, tripping and stumbling without subsequent striking against object, initial encounter; Y92.009 Unspecified place in unspecified non-institutional (private) residence as the place of occurrence of the external cause; Z87.820 Personal history of traumatic brain injury; Z87.891 Personal history of nicotine dependence; Z79.84 Long term (current) use of oral hypoglycemic drugs; Z88.8 Allergy status to other drugs, medicaments and biological substances
CPT/HCPCS: 36415; 72170; 73502; 96374; 96375; 99285; S0020; 71045; 80048; 80053; 82565; 83036; 85025; 87635; 93005; C1713; G0378; J0171; J0690; J1100; J1170; J1650; J2405; J2704; J3010; C1762; C1776; J0330; J2270